=== PATIENT | male | born 1965 | race Caucasian/White ===

== ENCOUNTER 2019-12-23 15:07 | Inpatient (IN) | payer BC, SELFPAY ==
[~2019-12-23] VITALS: Ht 185.4 cm; Wt 122.5 kg
--- NOTE | 2019-12-23 15:10 | NUR ---
Placed in room 01 . Placed on school bus monitor, blood pressure machine and pulse oximeter. To gown for exam. Side rails up.
[2019-12-23 15:11] VITALS: BP_SYST 155
--- NOTE | 2019-12-23 15:28 | NUR ---
EKG SHOWS A-FIB 110-130. DR CONTE IN TO REVIEW. PT UPDATED ON CONDITION AND COURSE OF TREATMENT
--- NOTE | 2019-12-23 15:31 | NUR ---
ALERT, CALM, DYSPNEIC, EPISODES OF SOB FOR 1 WEEK. PT FEELS CHEST TIGHTNESS AND WAS UNABLE TO SLEEP LAST NIGHT. CALM, ALERT, COMMUNICATES IN FULL COMPLETE SENTENCES SKIN WARM AND DRY. STEADY GAIT
[2019-12-23 15:54] LABS: BASOPHILS # (AUTO) 0.1 K/uL (0.0-0.2); BASOPHILS % (AUTO) 1.2 % (0.0-2.0); EOSINOPHILS % (AUTO) 0.4 % (0.0-4.0); HEMOGLOBIN 15.1 g/dL (14.0-18.0); LYMPHOCYTES % (AUTO) 13.8 % (20.5-51.5); MEAN CORPUSCULAR HEMOGLOBIN 35 pg (27-31); MEAN CORPUSCULAR HGB CONC 34 % (32-36); MEAN CORPUSCULAR VOLUME 103 fL (79.0-98.0); MONOCYTES # (AUTO) 0.7 K/uL (0.0-1.0); MONOCYTES % (AUTO) 10.4 % (1.7-9.3); NEUTROPHILS # (AUTO) 5.3 K/uL (1.8-7.7); NEUTROPHILS % (AUTO) 74.2 % (40.0-70.0); PLATELET COUNT (AUTO) 199 K/uL (130-430); RED BLOOD CELL COUNT(AUTO) 4.37 MIL/uL (4.2-6.2); WHITE BLOOD COUNT (AUTO) 7.1 K/uL (4.8-10.8)
[2019-12-23 16:09] LABS: CALCIUM 8.9 mg/dL (8.4-11.0); CREATININE 1.12 mg/dL (0.55-1.30)
[2019-12-23 16:15] LABS: ALBUMIN 3.9 g/dL (3.4-4.8); TOTAL BILIRUBIN 1.5 mg/dL (0.0-1.0)
[2019-12-23 16:39] LABS: CREATINE KINASE MB 12.1 ng/mL (0-3.6)
--- NOTE | 2019-12-23 16:53 | NUR ---
Called to the floor to get a Tele Bed, awaiting for room number
--- NOTE | 2019-12-23 16:53 | NUR ---
ADMIT ORDERS RECEIVED FOR TELE ADMISSION FOR A-FIB
--- NOTE | 2019-12-23 17:20 | NUR ---
MEAL PROVIDED, TOLERATED WELL. PT CALM, ALERT, RESP UNLABORED, SKIN WARM AND DRY HR 100-130 166/85
[2019-12-23] MEDS ORDERED: IPRATROPIUM/ALBUTEROL SULFATE 3 ML AMPUL.NEB (DUONEB) INH PRN (17:30)
[2019-12-23] MEDS ORDERED: ACETAMINOPHEN 650 MG/20.3 ML UDC PO PRN (17:30)
[2019-12-23 17:39] VITALS: BP_SYST 166
--- NOTE | 2019-12-23 17:56 | NUR ---
Dr Sood at bedside examining patient
--- NOTE | 2019-12-23 17:58 | NUR ---
MD AT BEDSIDE TO ASSESS
--- NOTE | 2019-12-23 18:04 | NUR ---
NO HOME MEDS.
--- NOTE | 2019-12-23 19:12 | NUR ---
Patient moved to bed 4
--- NOTE | 2019-12-23 19:14 | NUR ---
SBAR REPORT TO RN TO ASSUME CARE, PT CALM, ALERT, NO CHANGE IN MENTATION, AMBULATES STEADY, NO DYSPNEA OBSERVED, PT COMMUNICATES CLEARLY IN FULL COMPLETE SENTNECES
[2019-12-23] MEDS ORDERED: AMIODARONE HCL 200 MG TABLET PO ONE (19:15)
--- NOTE | 2019-12-23 19:32 | NUR ---
REPORT RECIEVED. PT IN [place]. VSS
[2019-12-23] MEDS: APIXABAN 2.5 MG TABLET PO SCH (20:38)
[2019-12-23] MEDS: chlordiazePOXIDE HCL 25 MG CAPSULE PO SCH (20:38)
--- NOTE | 2019-12-23 20:51 | NUR ---
PT ALERT AND ORIENTED. COMMUNICATES NEEDS WITHOUT DIFFICULTY. DENIES PAIN AT THIS TIME. VSS, AND NO DISTRESS NOTED. IN [facility]. MEDICATED ORDERED.
--- NOTE | 2019-12-23 23:58 | NUR ---
PT ALERT AND ORIENTED. DENIES ANY PAIN AND VSS.
--- NOTE | 2019-12-24 02:22 | NUR ---
pt in senthil, resting well. denies pain and is awakened easily by verbal stimulus. VSS.
--- NOTE | 2019-12-24 05:18 | NUR ---
PT RESTING WELL IN [facility]. ALERT WHEN AWAKENED. ORIENTED AND ABLE TO COMMUNICATE ALL NEEDS. VSS
[2019-12-24 06:28] LABS: BASOPHILS # (AUTO) 0.1 K/uL (0.0-0.2); BASOPHILS % (AUTO) 1.1 % (0.0-2.0); EOSINOPHILS # (AUTO) 0.2 K/uL (0.0-0.4); EOSINOPHILS % (AUTO) 3.4 % (0.0-4.0); HEMATOCRIT 43.5 % (36-54); HEMOGLOBIN 14.5 g/dL (14.0-18.0); LYMPHOCYTES # (AUTO) 1.1 K/uL (1.0-5.5); LYMPHOCYTES % (AUTO) 19.8 % (20.5-51.5); MEAN CORPUSCULAR HEMOGLOBIN 34 pg (27-31); MEAN CORPUSCULAR HGB CONC 33 % (32-36); MEAN CORPUSCULAR VOLUME 103 fL (79.0-98.0); MONOCYTES # (AUTO) 0.7 K/uL (0.0-1.0); MONOCYTES % (AUTO) 13.1 % (1.7-9.3); NEUTROPHILS # (AUTO) 3.4 K/uL (1.8-7.7); NEUTROPHILS % (AUTO) 62.6 % (40.0-70.0); PLATELET COUNT (AUTO) 159 K/uL (130-430); RED BLOOD CELL COUNT(AUTO) 4.22 MIL/uL (4.2-6.2); RED CELL DISTRIBUTION WIDTH 14.9 % (9.0-15.0); WHITE BLOOD COUNT (AUTO) 5.4 K/uL (4.8-10.8)
[2019-12-24] MEDS: AMIODARONE HCL 200 MG TABLET PO SCH ×3 (06:59→21:42)
--- NOTE | 2019-12-24 07:35 | NUR ---
Pt resting in gurney at this time A04, no distress noted, no SOB or chest pain.
--- NOTE | 2019-12-24 08:00 | NUR ---
Patient will be admitted to care of [facility]. Admitted to Tele unit. Will go to room 127. Belongings list completed. Complete and up to date summary report printed. SBAR report to be given at bedside with opportunity for questions.
[2019-12-24 08:03] LABS: ALANINE AMINOTRANSFERASE 84 U/L (12-78); ALBUMIN 3.5 g/dL (3.4-4.8); ANION GAP 3 (5-15); ASPARTATE AMINOTRANSFERASE 80 U/L (10-37); BILIRUBIN,DIRECT 0.5 mg/dL (0.0-0.3); CHLORIDE 102 mmol/L (98-107); CREATININE 0.93 mg/dL (0.55-1.30); GLUCOSE 138 mg/dL (70-99); POTASSIUM 4.5 mmol/L (3.5-5.1); SODIUM SERUM 137 mmol/L (136-145); TOTAL BILIRUBIN 1.4 mg/dL (0.0-1.0); UREA NITROGEN, BLOOD 16 mg/dL (8-21)
[2019-12-24 08:08] LABS: GFR AFRICAN AMERICAN 108 mL/min (>90)
[2019-12-24 08:36] LABS: CHOLESTEROL 233 mg/dL (<200); HDL CHOLESTEROL 77 mg/dL (>45); LDL CHOLESTEROL 113 mg/dL (<100); TRIGLYCERIDES 77 mg/dL (30-150)
--- NOTE | 2019-12-24 09:00 | NUR ---
ASSUMPTION OF CARE: RECEIVED PT FROM ER IN STABLE CONDITION, DX:INADEQUATE VENTILATION, R/T SOB, R/O COVID-19, VSS, AFEBRILE, NO C/O PAIN OR DISCOMFORT, VSS, BREATH SOUNDS ARE CLEAR, BREATHING UNLABORED, SATURATING 95% ORA, IV SITE INTACT, PATENT, NO REDNESS OR SWELLING, REORIENTED TO UNIT, CALL LIGHT PLACED WITHIN REACH, WILL CONT' TO MONITOR AND ASSESS.
[2019-12-24 09:05] VITALS: BP_SYST 160
--- NOTE | 2019-12-24 09:05 | NUR ---
ADMISSION NOTE Received patient from ER via senthil, received report from Kassie MUELLER. Patient admitted with diagnosis of .Put patient on telemetry.Patient oriented to hospital routine, call light, toileting and safety-patient verbalized understanding.Personal belongings recorded.
--- NOTE | 2019-12-24 10:44 | NUR ---
Cardiac consult called: for Dr. Archer, regarding new onset afib and SOB, ordered by Dr. Sood, spoke with Ángel.
[2019-12-24] MEDS: FOLIC ACID 1 MG TABLET PO SCH (11:00)
[2019-12-24] MEDS: THIAMINE HCL 100 MG TABLET PO SCH (11:00)
[2019-12-24] MEDS: FAMOTIDINE 20 MG TABLET PO SCH (11:00)
[2019-12-24] MEDS: APIXABAN 2.5 MG TABLET PO SCH ×2 (11:10→21:41)
--- NOTE | 2019-12-24 11:15 | NUR ---
[employer]: MORNING MEDS GIVEN, PER ORDERED BY Kirstin, TOLERATED WELL, WILL CONT' TO MONITOR AND ASSESS.
--- NOTE | 2019-12-24 14:00 | NUR ---
NURSES NOTES: PT RESTING IN POSITION OF COMFORT, NO SIGNIFICANT CHANGES NOTED AT THIS TIME, NEEDS MET, REORIENTED TO UNIT, CALL LIGHT PLACED WITHIN REACH, WILL CONT' TO MONITOR AND ASSESS.
--- NOTE | 2019-12-24 17:00 | NUR ---
NURSES NOTES: PT STABLE, NO RESPIRATORY DISTRESS NOTED, SATURATING 96% ORA, TOLERATING WELL, CALL LIGHT PLACED WITHIN REACH, WILL CONT' TO MONITOR AND ASSESS.
[2019-12-24 20:00] VITALS: BP_SYST 158
--- NOTE | 2019-12-24 20:00 | NUR ---
Opening Notes Received report from nightshift RNLory. Patient is resting in bed. Breathing is even and unlabored. No signs of distress noted. Left AC 20g is patent and saline locked. patient does not have any needs at this time, Awaiting abd US at this time. Bed is locked in the lowest position with call light within reach. Side rails up X 2. Covid isolation precautions and telemetry monitoring in place.
--- NOTE | 2019-12-24 20:50 | NUR ---
Abdominal US is being completed at this time.
--- NOTE | 2019-12-24 21:30 | NUR ---
Medications Administered scheduled medications at this time. Patient educated on purpose and side effects. Patient verbalized an understanding. Patient's dinner tray was brought into the room at this time. No other needs. Bed is locked in the lowest position with call light within reach. Side rails up X 2.
[2019-12-24] MEDS: METOPROLOL TARTRATE 25 MG TABLET PO SCH (21:41)
[2019-12-24] MEDS: chlordiazePOXIDE HCL 25 MG CAPSULE PO SCH (21:41)
[2019-12-25] VITALS: BP_SYST 125
--- NOTE | 2019-12-25 | NUR ---
RN Rounds Patient resting in bed watching TV. Breathing is even and unlabored. No signs of distress noted. Vital signs taken at this time and are stable. Patient does not have any other needs at this time. Bed is locked in the lowest position with call light within reach. Side rails up X 2.
--- NOTE | 2019-12-25 02:23 | NUR ---
RN Rounds Patient resting in bed with eyes closed. Breathing is even and unlabored. No signs of distress noted. Patient does not have any other needs at this time. Bed is locked in the lowest position with call light within reach. Side rails up X 2.
--- NOTE | 2019-12-25 04:45 | NUR ---
RN Rounds/Moved Patient Patient resting in bed with eyes closed. Breathing is even and unlabored. No signs of distress noted. Moved patient and all belongings to room 117 bed A. Patient tolerated well. Patient does not have any other needs at this time. Bed is locked in the lowest position with call light within reach. Side rails up X 2.
[2019-12-25] MEDS: AMIODARONE HCL 200 MG TABLET PO SCH ×3 (05:49→21:57)
--- NOTE | 2019-12-25 06:49 | NUR ---
Closing Notes Patient is resting in bed with eyes closed. Breathing is even and unlabored. No signs of distress noted. Left AC 20g is patent and saline locked. New orders from MD Sood given to D/C isolation, RN verified and to input. All needs met throughout shift. Bed is locked in the lowest position with call light within reach. Side rails up X 2. Isolation and safety precautions met throughout the shift. Telemetry monitoring in place. Will endorse care to dayshift RN
--- NOTE | 2019-12-25 07:25 | NUR ---
OPENING NOTE RECEIVED BEDSIDE REPORT FROM RN, PATIENT IN BED, RESPIRATIONS EVEN NON LABORED, BED IN LOW AND LOCKED POSITION, CALL LIGHT WITHIN REACH
[2019-12-25 08:00] VITALS: BP_SYST 146
[2019-12-25 08:12] LABS: HEPATITIS A AB, IgM Negative (Negative); HEPATITIS B CORE AB, IgM Negative (Negative); HEPATITIS B SURFACE AG Negative (Negative)
--- NOTE | 2019-12-25 08:40 | NUR ---
MD ROUNDS DR. LEI BEDSIDE EXAMINING PATIENT
[2019-12-25] MEDS: APIXABAN 2.5 MG TABLET PO SCH ×2 (08:49→20:55)
[2019-12-25] MEDS: THIAMINE HCL 100 MG TABLET PO SCH (08:51)
[2019-12-25] MEDS: METOPROLOL TARTRATE 25 MG TABLET PO SCH ×2 (08:51→20:56)
[2019-12-25] MEDS: FOLIC ACID 1 MG TABLET PO SCH (08:51)
[2019-12-25] MEDS: FAMOTIDINE 20 MG TABLET PO SCH (08:51)
--- NOTE | 2019-12-25 10:33 | NUR ---
2D ECHO 2D ECHO BEING PERFORMED BEDSIDE
[2019-12-25 12:00] VITALS: BP_SYST 128
--- NOTE | 2019-12-25 12:00 | NUR ---
nurse note obtained VS, patient sitting on edge of bed, eating lunch, bed in low and locked position, call light within reach
--- NOTE | 2019-12-25 14:00 | NUR ---
NURSE NOTE PATIENT IN BED, RESPIRATIONS EVEN, NON LABORED, BED IN LOW AND LOCKED POSITION, CALL LIGHT WITHIN REACH
[2019-12-25 16:00] VITALS: BP_SYST 130
--- NOTE | 2019-12-25 16:00 | NUR ---
NURSE NOTES OBTAINED VS, PATIENT IN BED, RESPIRATIONS EVEN, NON LABORED, BED IN LOW AND LOCKED POSITION, CALL LIGHT WITHIN REACH, PROVIDED PATIENT WITH JUICE
--- NOTE | 2019-12-25 17:58 | NUR ---
NURSE NOTE PROVIDED PATIENT WITH DINNER, PATIENT IN BED, RESPIRATIONS EVEN NON LABORED, BED IN LOW AND LOCKED POSITION
--- NOTE | 2019-12-25 19:15 | NUR ---
CLOSING NOTE PROVIDED BEDSIDE SBAR TO NIGHT RN, PATIENT IN BATHROOM, RESPIRATIONS EVEN NON LABORED, ENDORSED CARE TO NIGHT RN
--- NOTE | 2019-12-25 19:15 | NUR ---
OPENING NOTE RECEIVE REPORT AT BEDSIDE. PATIENT AWAKE, AMBULATORY, AOX4. NO SIGNS OF RESPIRATORY DISTRESS AND DISCOMFORT NOTED. BREATHING EVEN AND UNLABORED. DENIES PAIN AND SOB AT THIS TIME. ON ROOM AIR, TOLERATING WELL AT 97%. VITAL SIGNS TAKEN AND WILL BE RECORDED. IV SITE, PATENCY NOTED. REFUSED BED ALARM, CALL LIGHT WITHIN REACH, PATIENT WAS EDUCATED TO USE CALL LIGHT WHEN ASSISTANCE IS NEEDED. BED LOCKED AND IN LOWEST POSITION. PATIENT REQUEST FOR SLEEPING PILLS TONIGHT, WILL CALL MD. OTHER SAFETY PRECAUTIONS IN PLACE. WILL CONTINUE TO MONITOR PATIENT
[2019-12-25 20:00] VITALS: BP_SYST 140
--- NOTE | 2019-12-25 20:07 | NUR ---
SPOKE WITH MD DE LA CRUZ MADE AWARE OF PATIENTS REQUEST THAT WILL HELP PATIENT SLEEP TONIGHT. GAVE NEW ORDER. WILL CARRY OUT.
[2019-12-25] MEDS ORDERED: ZOLPIDEM TARTRATE 5 MG TABLET PO PRN (20:15)
[2019-12-25] MEDS: chlordiazePOXIDE HCL 25 MG CAPSULE PO SCH (20:55)
--- NOTE | 2019-12-25 21:10 | NUR ---
TRANSFER OF CARE ENDORSE TO ERVIN MAJANO FOR CONTINUITY OF CARE.
--- NOTE | 2019-12-25 21:29 | NUR ---
continuation of care: pt is awake, alert, watching tv. stable, no pain. needs attended. call light in reach. will follow-up
[2019-12-26 00:12] VITALS: BP_SYST 122
--- NOTE | 2019-12-26 00:13 | NUR ---
sleeping, no sob, no pain, vital sign with in normal limit, stable.
--- NOTE | 2019-12-26 02:00 | NUR ---
sleeping, comfortable. no pain, no sob, stable.
--- NOTE | 2019-12-26 03:55 | NUR ---
sleeping comfortable. no sob, no distress.stable.
[2019-12-26] MEDS: AMIODARONE HCL 200 MG TABLET PO SCH (05:52)
--- NOTE | 2019-12-26 05:54 | NUR ---
sleeping, no pain, vital sign stable. wakes up and took his am medication, needs attened.
--- NOTE | 2019-12-26 07:18 | NUR ---
closing: pt is still sleeping, no pain, stable, brp, needs attended the whole shift, sbar report given to am rn
--- NOTE | 2019-12-26 07:18 | NUR ---
opening note received bedside SBAR from night RN, patient in bed, respirations even non labored, bed in low and locked position, call light within reach, IVF running as ordered Addendum: 12/26/19 at 0747 by Varsha Friend RN disregard above note, written on wrong patient
[2019-12-26 08:00] VITALS: BP_SYST 147
--- NOTE | 2019-12-26 08:00 | NUR ---
pt sleeping in bed,arousible by verbal stimuli,A/Ox4,vss,saline lock in left antecubital patent and intact,needs attended call light & personal items within pt reach,safety maintained.continue to monitor pt.
--- NOTE | 2019-12-26 09:00 | NUR ---
pt ambulated by self on the hallway,no acute distress noted.
[2019-12-26] MEDS: FAMOTIDINE 20 MG TABLET PO SCH (09:46)
[2019-12-26] MEDS: THIAMINE HCL 100 MG TABLET PO SCH (09:46)
[2019-12-26] MEDS: METOPROLOL TARTRATE 25 MG TABLET PO SCH (09:48)
[2019-12-26] MEDS: FOLIC ACID 1 MG TABLET PO SCH (09:49)
[2019-12-26] MEDS: APIXABAN 2.5 MG TABLET PO SCH (09:50)
[2019-12-26] MEDS ORDERED: METO50TA7 PO (10:30)
[2019-12-26] MEDS ORDERED: AMI200 PO (10:31)
[2019-12-26] MEDS ORDERED: APIX5TAB PO (10:32)
[2019-12-26] MEDS ORDERED: THIA50TA10 PO (10:33)
[2019-12-26] MEDS ORDERED: FOLI-43 PO (10:34)
[2019-12-26 10:38] VITALS: BP_SYST 146
--- NOTE | 2019-12-26 11:00 | NUR ---
d/c home as per dr order,d/c IV,d/c electronic device monitor,d/c instruction with prescription given and explained to pt.& pt verbalized understandings of instructions.
== END 2019-12-26 10:55 | disposition home or self-care (01) | DRG 310 ==
LOC: SED 15:07 → STU 16:47
PROVIDERS: ADMIT Internal Medicine; ATTEND Internal Medicine
DX: I48.91 Unspecified atrial fibrillation (principal); E66.01 Morbid (severe) obesity due to excess calories; Z20.828 Contact with and (suspected) exposure to other viral communicable diseases; I10 Essential (primary) hypertension; Z68.35 Body mass index [BMI] 35.0-35.9, adult; Z79.01 Long term (current) use of anticoagulants; Z79.899 Other long term (current) drug therapy
CPT/HCPCS: 36415; 36600; 71045; 76700-TC; 80048; 80053; 80061; 80074; 80076; 82550-TC; 82553-TC; 82803-TC; 83735-TC; 83880; 84443-TC; 84484; 85025; 85379; 93005; 93306; 94660; 99285; G0378; G0482; U0003-CS

== ENCOUNTER 2022-08-03 16:08 | Emergency (ER) | payer BC ==
[~2022-08-03] VITALS: Ht 185.4 cm; Wt 120.2 kg
[~2022-08-03 16:08] MED LIST: AMIO200T66 PO; APIX5TAB PO; FOLI-43 PO; METO50TA7 PO; THIA50TA10 PO
[2022-08-03 16:11] VITALS: BP_SYST 154
[2022-08-03 17:03] LABS: BASOPHILS # (AUTO) 0.1 K/uL (0.0-0.2); EOSINOPHILS % (AUTO) 0.5 % (0.0-4.0); HEMATOCRIT 41.1 % (36-54); MEAN CORPUSCULAR HEMOGLOBIN 33 pg (27-31); MEAN CORPUSCULAR HGB CONC 34 % (32-36); MEAN CORPUSCULAR VOLUME 97 fL (79.0-98.0); MONOCYTES # (AUTO) 0.7 K/uL (0.0-1.0); MONOCYTES % (AUTO) 10.1 % (1.7-9.3); NEUTROPHILS # (AUTO) 5.1 K/uL (1.8-7.7); NEUTROPHILS % (AUTO) 73.4 % (40.0-70.0); PLATELET COUNT (AUTO) 190 K/uL (130-430); RED BLOOD CELL COUNT(AUTO) 4.26 MIL/uL (4.2-6.2); RED CELL DISTRIBUTION WIDTH 14.9 % (9.0-15.0)
[2022-08-03 17:17] LABS: ANION GAP 10 (5-15); CALCIUM 9.5 mg/dL (8.4-11.0); CHLORIDE 100 mmol/L (98-107); CREATININE 1.02 mg/dL (0.55-1.30); GFR AFRICAN AMERICAN 96 mL/min (>90); GLUCOSE 114 mg/dL (70-99); UREA NITROGEN, BLOOD 19 mg/dL (8-21)
[2022-08-03 17:24] LABS: ALANINE AMINOTRANSFERASE 42 U/L (12-78); ASPARTATE AMINOTRANSFERASE 38 U/L (10-37); TOTAL BILIRUBIN 0.7 mg/dL (0.0-1.0)
[2022-08-03 19:35] VITALS: BP_SYST 154
== END 2022-08-03 19:35 | disposition home or self-care (01) ==
LOC: SED 16:08
DX: I48.20 Chronic atrial fibrillation, unspecified (principal); R00.2 Palpitations; I10 Essential (primary) hypertension; Z79.899 Other long term (current) drug therapy
CPT/HCPCS: 36415; 71045; 80053; 83880; 84484; 85025; 99284